=== PATIENT | female | born 1980 | race Caucasian/White ===

== ENCOUNTER 2021-02-22 12:00 | Emergency (ER) | payer BC ==
--- OUTSIDE RECORDS SUMMARY | 2021-02-22 12:03 | XMS REPORT | Continuity of Care Document ---
:1980 Author Organization [facility] t Address [address] [place] [address] Care Team Providers Name Role Phone DEBI Attending Clinician Unavailable DEBI Admitting Clinician Unavailable Problems This patient has no known problems. Allergies, Adverse Reactions, Alerts This patient has no known allergies or adverse reactions. Social History Smoking Status Start Date Stop Date Source Current every day smoker [facility] (LUF/SEVEN/SA) Medications This patient has no known medications. Procedures This patient has no known procedures. Encounters Start End Encounter Admission Attending Care Care Encounter Source Date/Time Date/Time Type Type Clinicians Facility Department ID 2017-11-29 2017-11-29 [facility] [address] [place] [id number] [facility] 10:09:00 23:59:00 IN RT [facility] [address] [facility] ([address] V/SA) [place] [address] Results Test Description Test Time Test Comments Results Result Sour e Comments US BREAST 2017-11-29 Procedures: US UNILATERAL LIMITED 11:05:37 BREAST UNILATERAL LIMITEDOrder Date: 11/29/2017 10:30 AMOrdering Provider: WESLEY Garciainical Indication: 6 month followup of probably benign right breast massComparison: May 26, 2017Findings:Ultrasoun d right breast 12 o'clock:There is an ovoid, well-circumscribed solid mass deep within the right breastat the 12:00 position roughly 8 cm from the nipple. This measures 1.1 x 0.4 cm.There is no posterior acoustic shadowing. There is no internal calcification.This is stable in size and appearance from the prior study.No right axillary lymphadenopathy.Impres christine:1. Stable well-circumscribed solid mass in the 12:00 position of the rightbreast. This measures 1.1 x 0.4 cm and has probably benign features. This eitherrepresents an intramammary lymph node or fibroadenoma.2. Recommend bilateral diagnostic 3-D mammography in 6 months with repeatdiagnostic right breast ultrasound. If the right breast mass is stable on thatstudy, patient may resume annual mammography.BIRADS Result 3: Probably benign, short term follow up recommended.This final report was electronically signed by Dr Marshall Guillen MD 11/29/201710:59 AMDictated By: MARSHALL GUILLEN.Date: 11/29/2017 11:05
[2021-02-22 14:02] LABS: Urine Blood Negative (Negative); Urine Glucose Negative (Negative); Urine Protein Negative (Negative); Urine Specific Gravity 1.025 (1.005-1.030); Urine pH 5.5 (5.0-7.0)
--- NOTE | 2021-02-22 15:55 | RAD REPORT ---
EXAM DESCRIPTION: RAD - Knee Right 3 View - 02/22/2021 3:47 pm CLINICAL HISTORY: Right knee pain status post injury FINDINGS: No fracture or dislocation is seen. Small joint effusion. 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 Edema within the subcutaneous tissues
[2021-02-22] MEDS ORDERED: IBUPROFEN 400 MG TAB ONE (15:58)
--- NOTE | 2021-02-22 16:23 | EDPHYS ---
Physician Documentation [facility] Name: Annette Garcia Age: 40 yrs Sex: Female : 1980 Arrival Date: 02/22/2021 Time: 12:05 Bed 16 Private MD: LAKESHIA Physician Hayden Patino HPI: 02/22 16:18 This 40 yrs old Female presents to ER via Wheelchair with complaints of Knee jmm Pain. 16:18 The patient presents with an injury, pain. Onset: The symptoms/episode began/occurred jmm acutely, today. Modifying factors: The symptoms are alleviated by nothing. the symptoms are aggravated by movement, weight bearing. 40-year-old female with history of hypertension that presents emerged part with complaints of right knee pain which occurred after a fall prior to arrival. Patient states she has had chronic pain to the knee for approximately 10 years but had difficulty bearing weight after the fall. Denies other known injury.. 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 - Social history:: Smoking status: Patient/guardian denies using tobacco, the patient reports quitting approximately 2 years ago. ROS: 16:18 Constitutional: Negative for fever, chills, and weight loss, Cardiovascular: Negative jmm for chest pain, palpitations, and edema, Respiratory: Negative for shortness of breath, cough, wheezing, and pleuritic chest pain. 16:18 MS/extremity: Positive for injury or acute deformity, pain. 16:18 All other systems are negative. Exam: 16:18 Constitutional: This is a well developed, well nourished patient who is awake, alert, jmm and in no acute distress. Head/Face: atraumatic. Eyes: EOMI, no conjunctival erythema appreciated ENT: Moist Mucus Membranes Neck: Trachea midline, Supple Chest/axilla: Normal chest wall appearance and motion. Cardiovascular: Regular rate and rhythm. No edema appreciated Respiratory: Normal respirations, no respiratory distress appreciated Abdomen/GI: Non distended, soft Back: Normal ROM Skin: General appearance color normal 16:18 Musculoskeletal/extremity: ROM: intact in all extremities, Right lateral knee pain on palpation, compartments are soft, full dorsalis pulses appreciated, neurovascular intact. 16:18 Skin: Appearance: Color: normal in color. 16:18 Neuro: Orientation: is normal, Mentation: is normal, Memory: is normal. 16:18 Psych: Behavior/mood is pleasant, cooperative. Vital Signs: 12:58 BP 150 / 72; Pulse 71; Resp 20; Temp 98.3(O); Pulse Ox 100% on R/A; Weight 130.18 kg kg (R); Height 5 ft. 6 in. (167.64 cm) (R); Pain 7/10; 12:58 Body Mass Index 46.32 (130.18 kg, 167.64 cm) kg Procedures: 16:20 Splinting: Splint applied to right leg using knee immobilizer, Examined by me, post chemo splint application: neurovascular intact, 2+ distal pulses palpable, brisk capillary refill noted, Patient tolerated well. MDM: 14:30 Patient medically screened. alena 16:20 Data reviewed: vital signs, nurses notes. Counseling: I had a detailed discussion with chemo the patient and/or guardian regarding: the historical points, exam findings, and any diagnostic results supporting the discharge/admit diagnosis, radiology results, the need for outpatient follow up, to return to the emergency department if symptoms worsen or persist or if there are any questions or concerns that arise at home. ED course: Patient is alert nontoxic in appearance in the ED. X-ray did not reveal a fracture. Patient is advised to follow-up with orthopedics for further evaluation for most likely an internal derangement. Patient is otherwise given strict return precautions. Patient understood and agrees plan of care.. 02/22 14:00 Order name: Urine Dipstick-Ancillary; Complete Time: 14:48 EDMS 02/22 13:04 Order name: XRAY Knee RIGHT 3 view; Complete Time: 16:07 kg 02/22 15:19 Order name: Ice pack; Complete Time: 15:42 jm 02/22 15:19 Order name: Knee Immobilizer; Complete Time: 15:54 [facility] Administered Medications: 15:42 Drug: Ibuprofen 800 mg Route: PO; iw 16:00 Follow up: Response: No adverse reaction iw Disposition: 02/23 06:59 Co-signature as Attending Physician, Hayden Patino MD I agree with the assessment and alena plan of care. Disposition Summary: 02/22/21 16:23 Discharge Ordered Location: Home [facility] Condition: Stable jmm Diagnosis - Other internal derangements of right knee [facility] Followup: [facility] - With: Nathan Lackey MD - When: 2 - 3 days - Reason: Recheck today's complaints, Continuance of care, Re-evaluation by your physician Discharge Instructions: - Discharge Summary Sheet jm - Exercises for Chronic Knee Pain jmm - Chronic Knee Pain, Adult jm Forms: - Medication Reconciliation Form [facility] - Thank You Letter [facility] - Antibiotic Education [facility] - Prescription Opioid Use [facility] Prescriptions: - Ibuprofen 800 mg Oral Tablet - take 1 tablet by ORAL route every 8 hours As needed take with food; 30 tablet; [facility] Refills: 0, Product Selection Permitted Signatures: Dispatcher [employer] Hayden Garza MD MD cha Mickail, Joel, PA PA jmm Williams, Irene, RN RN Agata Del Cid RN RN kg
--- NOTE | 2021-02-22 16:23 | ER ---
Nurse's Notes [facility] Name: Annette Garcia Age: 40 yrs Sex: Female : 1980 Arrival Date: 02/22/2021 Time: 12:05 Bed 16 Private MD: Diagnosis: Other internal derangements of right knee Presentation: 02/22 12:58 Chief complaint: Patient states: Left knee pain starting yesterday 02/21 \\T\\ 1200. Pt kg stated she was just walking and heard a pop then had pain. Pt denies twisting or falling. Coronavirus screen: Client denies travel out of the [place] in the last 14 days. At this time, unable to obtain information related to travel outside the [place] At this time, the client does not indicate any symptoms associated with coronavirus-19. Ebola Screen: Patient negative for fever greater than or equal to 101.5 degrees Fahrenheit, and additional compatible Ebola Virus Disease symptoms Patient denies exposure to infectious person. Patient denies travel to an Ebola-affected area in the 21 days before illness onset. Initial Sepsis Screen: Does the patient meet any 2 criteria? No. Patient's initial sepsis screen is negative. Does the patient have a suspected source of infection? No. Patient's initial sepsis screen is negative. Risk Assessment: Do you want to hurt yourself or someone else? Patient reports no desire to harm self or others. Onset of symptoms was February 21, 2021 at 12:00. 12:58 Method Of Arrival: Wheelchair kg 12:58 Acuity: LIBRADO 4 kg Triage Assessment: 12:59 General: Appears in no apparent distress. Behavior is calm, cooperative, appropriate kg for age, quiet. Pain: Complains of pain in lateral aspect of right knee, posterior aspect of right knee, medial aspect of right knee and right knee Pain currently is 7 out of 10 on a pain scale. at worst was 10 out of 10 on a pain scale. level that patient reports is acceptable is 4 out of 10 on a pain scale. Quality of pain is described as "compressed". 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 - Social history:: Smoking status: Patient/guardian denies using tobacco, the patient reports quitting approximately 2 years ago. Screenin:03 Abuse screen: Denies threats or abuse. Denies injuries from another. Nutritional kg screening: No deficits noted. Tuberculosis screening: No symptoms or risk factors identified. Fall Risk None identified. No fall in past 12 months (0 pts). No secondary diagnosis (0 pts). No IV (0 pts). Ambulatory Aid- None/Bed Rest/Nurse Assist (0 pts). Gait- Normal/Bed Rest/Wheelchair (0 pts) Mental Status- Oriented to own ability (0 pts). Total Vizcarra Fall Scale indicates No Risk (0-24 pts). Assessment: 15:40 General: Appears in no apparent distress. iw 15:40 Pain: Complains of pain in right knee. Neuro: Level of Consciousness is awake, alert, iw obeys commands, Oriented to person, place, time, situation, Moves all extremities. Cardiovascular: Patient's skin is warm and dry. Respiratory: Respiratory effort is even, unlabored, Respiratory pattern is regular. Derm: Skin is intact, is healthy with good turgor. Musculoskeletal: Range of motion: limited in right knee. Vital Signs: 12:58 BP 150 / 72; Pulse 71; Resp 20; Temp 98.3(O); Pulse Ox 100% on R/A; Weight 130.18 kg kg (R); Height 5 ft. 6 in. (167.64 cm) (R); Pain 7/10; 12:58 Body Mass Index 46.32 (130.18 kg, 167.64 cm) kg ED Course: 12:05 Patient arrived in ED. ds1 12:59 Triage completed. kg 13:03 Patient has correct armband on for positive identification. kg 13:04 Arm band placed on left wrist. kg 14:14 Tiago Cormier PA is PHCP. jm 14:14 Hayden Patino MD is Attending Physician. [facility] 14:18 Lor Comer, KINJAL is Primary Nurse. iw 15:47 XRAY Knee RIGHT 3 view In Process Unspecified. EDMS 15:54 Crutch training done. Knee immobilizer applied on right knee. em1 16:22 Nathan Lackey MD is Referral Physician. [facility] 16:40 No provider procedures requiring assistance completed. Patient did not have IV access iw during this emergency room visit. Administered Medications: 15:42 Drug: Ibuprofen 800 mg Route: PO; iw 16:00 Follow up: Response: No adverse reaction iw Outcome: 16:23 Discharge ordered by MD. [facility] 16:40 Patient left the ED. [facility] 16:40 Discharged to home with crutches. iw 16:40 Condition: good 16:40 Discharge instructions given to patient, Instructed on discharge instructions, follow up and referral plans. medication usage, Demonstrated understanding of instructions, follow-up care, medications, crutch walking, Prescriptions given X 1. Signatures: Dispatcher [employer] EDMS Tiago Cormier PA PA Adilia Campos ds1 Lor Comer, RN RN Johnnie Banegas em1 Rowena Banegas 5 Agata Clemente, KINJAL RN kg Corrections: (The following items were deleted from the chart) 19:52 13:00 General: Appears in no apparent distress. iw iw
[2021-02-22 17:05] VITALS: BP 150/72; TEMP 98.3; O2SAT 100
== END 2021-02-22 16:40 | disposition home or self-care (01) ==
LOC: ER 12:00
DX: M23.8X2 Other internal derangements of left knee (principal); I10 Essential (primary) hypertension; F41.9 Anxiety disorder, unspecified; W19.XXXA Unspecified fall, initial encounter
CPT/HCPCS: 81003; 99284

== ENCOUNTER 2021-06-10 19:42 | Emergency (ER) | payer BC ==
--- NOTE | 2021-06-10 20:18 | ER ---
Nurse's Notes [facility] Name: Annette Garcia Age: 40 yrs Sex: Female : 1980 Arrival Date: 06/10/2021 Time: 19:44 Bed Waiting Private MD: Diagnosis: Presentation: 06/10 20:00 Chief complaint: Patient states: I was at [facility] earlier today and I took my blood ld1 pressure on the machine because I started to get a headache. My BP was 180/84. Coronavirus screen: At this time, the client does not indicate any symptoms associated with coronavirus-19. Ebola Screen: No symptoms or risks identified at this time. Initial Sepsis Screen: Does the patient meet any 2 criteria? No. Patient's initial sepsis screen is negative. Does the patient have a suspected source of infection? No. Patient's initial sepsis screen is negative. Risk Assessment: Do you want to hurt yourself or someone else? Patient reports no desire to harm self or others. Onset of symptoms was June 10, 2021. 20:00 Method Of Arrival: Ambulatory ld1 20:00 Acuity: LIBRADO 3 ld1 Triage Assessment: 20:02 General: Appears in no apparent distress. comfortable, Behavior is calm, cooperative, ld1 appropriate for age. Pain: Denies pain. EENT: No signs and/or symptoms were reported regarding the EENT system. Neuro: Level of Consciousness is awake, alert, obeys commands, Oriented to person, place, time, situation, Appropriate for age. Cardiovascular: Capillary refill < 3 seconds Patient's skin is warm and dry. Respiratory: Airway is patent Respiratory effort is even, unlabored, Respiratory pattern is regular, symmetrical. GI: Abdomen is non-distended, obese. : No signs and/or symptoms were reported regarding the genitourinary system. Derm: No signs and/or symptoms reported regarding the dermatologic system. Musculoskeletal: No signs and/or symptoms reported regarding the musculoskeletal system. 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 - Social history:: Smoking status: Patient denies any tobacco usage or history of. Patient/guardian denies using alcohol. Assessment: 20:16 Reassessment: Pt stated "I am going to leave, I do not think I need to be here anymore. ld1 My BP is not near as bad as I thought it was.". Vital Signs: 20:00 BP 160 / 74; Pulse 83; Resp 18; Temp 97.8(TE); Pulse Ox 98% on R/A; Weight 133.81 kg; ld1 Height 5 ft. 6 in. (167.64 cm); Pain 0/10; 20:00 Body Mass Index 47.61 (133.81 kg, 167.64 cm) ld1 ED Course: 19:44 Patient arrived in ED. bp1 20:02 Triage completed. ld1 20:02 Arm band placed on right wrist. ld1 Administered Medications: No medications were administered Outcome: 20:17 Patient left the ED. ld1 Signatures: Lizzy Ritter bp1 Giovana Beckett, RN RN ld1
[2021-06-10 20:56] VITALS: BP 160/74; TEMP 97.8; O2SAT 98
--- OUTSIDE RECORDS SUMMARY | 2021-06-14 18:30 | XMS REPORT | Continuity of Care Document ---
:1980 Author Organization [facility] t Address [address] [place] [address] Care Team Providers Name Role Phone DEBI Attending Clinician Unavailable DEBI Admitting Clinician Unavailable Problems This patient has no known problems. Allergies, Adverse Reactions, Alerts This patient has no known allergies or adverse reactions. Social History Smoking Status Start Date Stop Date Source Current every day smoker [facility] (LUF/SEVEN/SA) Medications This patient has no known medications. Procedures This patient has no known procedures. Encounters Start End Encounter Admission Attending Care Care Encounter Source Date/Time Date/Time Type Type Clinicians Facility Department ID 2017-11-29 2017-11-29 [facility] [address] [place] [id number] [facility] 10:09:00 23:59:00 IN RT [facility] [address] [facility] ([address], V[address]SA) [place] [address] Results Test Description Test Time Test Comments [...]
== END 2021-06-10 20:17 | disposition left against medical advice (07) ==
LOC: ER 19:42
DX: I10 Essential (primary) hypertension (principal); Z53.21 Procedure and treatment not carried out due to patient leaving prior to being seen by health care provider
CPT/HCPCS: 99281

== ENCOUNTER 2024-05-22 10:23 | Emergency (ER) | payer BC ==
[2024-05-22] MEDS ORDERED: dexAMETHasone 10 MG/ML VIAL ONE (10:56)
[2024-05-22] MEDS ORDERED: KETOROLAC 30 MG/ML INJ ONE (10:56)
[2024-05-22] MEDS ORDERED: CYCLOBENZAPRINE 10 MG TAB ONE (10:59)
[2024-05-22] MEDS ORDERED: GABAPENTIN 300 MG CAP ONE (11:00)
--- NOTE | 2024-05-22 11:53 | ER ---
Nurse's Notes [facility] Name: Annette Garcia Age: 43 yrs Sex: Female : 1980 Arrival Date: 05/22/2024 Time: 10:23 Bed 10 Private MD: Diagnosis: Low back pain Presentation: 05/22 10:36 Chief complaint: Patient states: Left lower back pain since Wednesday getting worse. ll1 Coronavirus screen: Client denies travel out of the [place] in the last 14 days. At this time, the client does not indicate any symptoms associated with coronavirus-19. Ebola Screen: Patient denies travel to an Ebola-affected area in the 21 days before illness onset. Initial Sepsis Screen: Does the patient meet any 2 criteria? No. Patient's initial sepsis screen is negative. Does the patient have a suspected source of infection? No. Patient's initial sepsis screen is negative. Risk Assessment: Do you want to hurt yourself or someone else? Patient reports no desire to harm self or others. Onset of symptoms was May 20, 2024. 10:36 Method Of Arrival: Wheelchair ll1 10:36 Acuity: LIBRADO 4 ll1 Triage Assessment: 10:36 General: Appears uncomfortable, Behavior is calm, cooperative, appropriate for age. ll1 Pain: Complains of pain in back Quality of pain is described as aching. Musculoskeletal: Circulation, motion, and sensation intact. Capillary refill < 3 seconds, in bilateral toes. Reports pain in left low back. Historical: - Allergies: 10:35 No Known Allergies; ll1 - PMHx: 10:35 Anxiety; Hypertensive disorder; ll1 - PSHx: 10:35 ear; tubal ligation x 2; knee surgery; ll1 - Immunization history:: Adult Immunizations up to date. - Infectious Disease History:: Denies. - Social history:: Smoking status: Patient denies any tobacco usage or history of. Screenin:17 [facility] ED Fall Risk Assessment (Adult) History of falling in the last 3 months, ar6 including since admission No falls in past 3 months (0 pts) Confusion or Disorientation No (0 pts) Intoxicated or Sedated No (0 pts) Impaired Gait No (0 pts) Mobility Assist Device Used No (0 pt) Altered Elimination No (0 pt). Abuse screen: Denies threats or abuse. Denies injuries from another. Nutritional screening: No deficits noted. Tuberculosis screening: No symptoms or risk factors identified. 12:18 [facility] ED Fall Risk Assessment (Adult) Score/Fall Risk Level 0 - 2 = Low Risk ar6 Oriented to surroundings, Maintained a safe environment, Hourly rounding (assess needs \T\ fall precautionary measures) done. Vital Signs: 10:36 BP 128 / 66; Pulse 60; Resp 17; Temp 97.9; Pulse Ox 100% ; Weight 134.26 kg; Height 5 ll1 ft. 6 in. ; Pain 9/10; 10:36 Body Mass Index 47.78 (134.26 kg, 167.64 cm) ll1 10:36 Pain Scale: Adult ll1 ED Course: 10:33 Patient arrived in ED. mg5 10:33 Ani Peng PA-C is PHCP. sb4 10:34 Shalom Nielsen MD is Attending Physician. sb4 10:37 Triage completed. ll1 10:38 Arm band placed on Patient placed in an exam room, on a stretcher. ll1 12:17 Patient has correct armband on for positive identification. Bed in low position. Call ar6 light in reach. Side rails up X 1. Provided Education on: plan of care. 12:17 No provider procedures requiring assistance completed. Patient did not have IV access ar6 during this emergency room visit. Administered Medications: 11:08 Drug: Ketorolac IM 30 mg IM once Route: IM; Site: right deltoid; hb 12:19 Follow up: Response: No adverse reaction ar6 11:08 Drug: Dexamethasone IM 10 mg IM once Route: IM; Site: left deltoid; hb 12:18 Follow up: Response: No adverse reaction ar6 11:08 Drug: Cyclobenzaprine PO 10 mg PO once Route: PO; hb 12:18 Follow up: Response: No adverse reaction ar6 11:08 Drug: Gabapentin PO 300 mg PO once Route: PO; hb 12:18 Follow up: Response: No adverse reaction ar6 Medication: 12:18 VIS not applicable for this client. ar6 Outcome: 11:52 Discharge ordered by . sb4 12:17 Discharged to home ambulatory, ar6 12:17 Condition: good 12:17 Discharge instructions given to patient, Instructed on discharge instructions, follow up and referral plans. medication usage, Demonstrated understanding of instructions, follow-up care, medications, Prescriptions given X 3, 12:19 Patient left the ED. ar6 Signatures: Susan Ramirez, RN RN Dat Amin RN RN ll1 Ani Peng PA-C PA-C sb4 Guera Fonseca 5 Malika Lowery RN RN ar6
--- NOTE | 2024-05-22 11:53 | EDPHYS ---
Physician Documentation [facility] Name: Annette Garcia Age: 43 yrs Sex: Female : 1980 Arrival Date: 05/22/2024 Time: 10:23 Bed 10 Private MD: ED Physician Shalom Nielsen HPI: 05/22 10:52 This 43 yrs old Female presents to ER via Wheelchair with complaints of Back Pain. sb4 10:52 The patient presents with pain that is acute, with no known mechanism of injury. The sb4 symptoms are located in the left low back. Onset: The symptoms/episode began/occurred 2 day(s) ago. The pain radiates to the buttocks. Associated signs and symptoms: The patient has no apparent associated signs or symptoms. The problem was sustained without known cause. Modifying factors: The patient symptoms are alleviated by specific position, lying down, the patient symptoms are aggravated by bending, lifting, standing. The patient has not experienced similar symptoms in the past. The patient has not recently seen a physician. Historical: - Allergies: 10:35 No Known Allergies; ll1 - PMHx: 10:35 Anxiety; Hypertensive disorder; ll1 - PSHx: 10:35 ear; tubal ligation x 2; knee surgery; ll1 - Immunization history:: Adult Immunizations up to date. - Infectious Disease History:: Denies. - Social history:: Smoking status: Patient denies any tobacco usage or history of. ROS: 10:52 Constitutional: Negative for fever, chills, and weight loss, sb4 10:52 Back: Positive for pain at rest, pain with movement, of the left low back, 10:52 All other systems are negative, Exam: 10:52 Head/Face: Normocephalic, atraumatic. Eyes: Extra-ocular motions intact. Periorbital sb4 areas with no swelling, redness, or edema. ENT: Mucous membranes moist. Skin: Warm, dry with normal turgor. Normal color with no rashes, no lesions, and no evidence of cellulitis. MS/ Extremity: Pulses equal, no cyanosis. Neurovascular intact. Full, normal range of motion. Neuro: Awake and alert, GCS 15, oriented to person, place, time, and situation. Motor strength 5/5 in all extremities. Sensory grossly intact. 10:52 Constitutional: The patient appears alert, awake, obese, uncomfortable, Vital Signs: 10:36 BP 128 / 66; Pulse 60; Resp 17; Temp 97.9; Pulse Ox 100% ; Weight 134.26 kg; Height 5 ll1 ft. 6 in. ; Pain 9/10; 10:36 Body Mass Index 47.78 (134.26 kg, 167.64 cm) ll1 10:36 Pain Scale: Adult ll1 MDM: 10:37 Medical Screening Exam initiated sb4 11:52 Data reviewed: vital signs, nurses notes, and as a result, I will discharge patient. sb4 Counseling: I had a detailed discussion with the patient and/or guardian regarding the historical points, exam findings, and any diagnostic results supporting the discharge/admit diagnosis, to return to the emergency department if symptoms worsen or persist or if there are any questions or concerns that arise at home. Administered Medications: 11:08 Drug: Ketorolac IM 30 mg IM once Route: IM; Site: right deltoid; hb 12:19 Follow up: Response: No adverse reaction ar6 11:08 Drug: Dexamethasone IM 10 mg IM once Route: IM; Site: left deltoid; hb 12:18 Follow up: Response: No adverse reaction ar6 11:08 Drug: Cyclobenzaprine PO 10 mg PO once Route: PO; hb 12:18 Follow up: Response: No adverse reaction ar6 11:08 Drug: Gabapentin PO 300 mg PO once Route: PO; hb 12:18 Follow up: Response: No adverse reaction ar6 Disposition: 11:52 Chart complete. sb4 12:45 Co-signature as Attending Physician, Shalom Nielsen MD I reviewed the patient's care rt provided by the Advanced Practice Provider and agree with the diagnosis and treatment plan. Disposition Summary: 05/22/24 11:52 Discharge Ordered Notes: Location: Home sb4 Problem: new sb4 Symptoms: have improved sb4 Condition: Stable sb4 Diagnosis - Low back pain sb4 Followup: sb4 - With: Private Physician - When: As needed - Reason: Recheck today's complaints, Re-evaluation by your physician Discharge Instructions: - Discharge Summary Sheet sb4 - Sciatica, [id number] sb4 - Low Back Sprain or Strain Rehab sb4 Forms: - Patient Portal Instructions sb4 - Leadership Thank You Letter sb4 Prescriptions: - Prednisone 20 mg Oral Tablet - take 1 tablet ORAL route once daily for 5 days; 5 tablet; Refills: 0, Product sb4 Selection Permitted - Cyclobenzaprine 10 mg Oral Tablet - take 1 tablet ORAL route every 8 hours As needed; 30 tablet; Refills: 0, sb4 Product Selection Permitted - Diclofenac Sodium 75 mg Oral Tablet Sustained Release - take 1 tablet ORAL route 2 times per day; 30 tablet; Refills: 0, Product sb4 Selection Permitted Signatures: Susan Ramirez RN KINJAL Dat Walker RN RN ll1 Ani Peng PA-C PAJennifer sb4 Shalom Nielsen MD MD rt Malika Lowery RN RN ar6
[2024-05-22 14:42] VITALS: BP 128/66; TEMP 97.9; O2SAT 100
== END 2024-05-22 12:19 | disposition home or self-care (01) ==
LOC: ER 10:23
DX: M54.50 Low back pain, unspecified (principal)
CPT/HCPCS: 96372; 99284; J1100